=== PATIENT | female | born 1995 | race Caucasian/White ===

== ENCOUNTER 2021-04-16 13:11 | Emergency (ER) | payer OTHER, BC, SELFPAY ==
[2021-04-16 14:48] VITALS: BP 132/82; PULSE 73; RESP 16; TEMP 37.2; O2SAT 99
--- NOTE | 2021-04-16 15:46 | ED.URI ---
HPI - URI/Sore Throat General Chief Complaint: Upper Respiratory Infection Stated Complaint: sore throat Time Seen by Provider: 04/16/21 15:46 Source: patient Mode of arrival: ambulatory Limitations: no limitations History of Present Illness HPI Narrative: Shasha Birmingham is a 25 yo female with with no PMH who comes to [facility] for strep test after she was Covid tested earlier today. She left work early yesterday and was told that she had to get both a Covid test and strep test before she can return to work. Rapid strep test is negative today and she had symptoms that started on Wednesday. She stated that since she has been here for so long her throat is actually feeling better Related Data Home Medications Medication Instructions Recorded Confirmed desogestrel-ethinyl estradiol tablet 04/16/21 [Apri] Allergies Allergy/AdvReac Type Severity Reaction Status Date / Time No Known Allergies Allergy Verified 04/16/21 15:23 Review of Systems Review of Systems: CONSTITUTIONAL: Denies fever, chills, sweats. EYES: Denies visual changes, redness, discharge. ENT: Denies rhinorrhea, has mild congestion, has sore throat, otalgia. CARDIOVASCULAR: Denies chest pain, palpitations, edema. RESPIRATORY: Denies dyspnea, wheezing, cough GASTROINTESTINAL: Denies abdominal pain, nausea, vomiting, diarrhea. GENITOURINARY: Denies dysuria, hematuria, abnormal discharge SKIN: Denies rash or itching. NEUROLOGIC: Denies numbness, or focal weakness. PSYCHIATRIC: Denies anxiety or depression. [facility] Social History Social History (Updated 04/16/21 @ 15:52 by Dee Boles CNP) Smoking status: Never smoker Alcohol intake: current Comments At time of signature, I agree with nursing past medical, surgical, social and family history. There is no relevant family history pertinent to the presenting complaint. Exam Narrative: GENERAL: This is a well-nourished, well-developed patient, in mild distress. HEAD: normocephalic, atraumatic. EYES: Sclera clear/white. Vision is grossly intact. EARS: External ears normal, auditory canals mild erythema and without drainage, TMs normal without perforation. Hearing grossly intact. NOSE: External nose normal without nasal discharge, nares without redness, no rhinorrhea. THROAT: Mucous membranes moist, posterior pharynx erythema with mild edema NECK: Neck supple, non-tender CARDIOVASCULAR: Regular rate and rhythm without murmurs, gallops, or rubs. RESPIRATORY: Clear to auscultation. Breath sounds equal bilaterally. No wheezes, rales, or rhonchi. GASTROINTESTINAL: Abdomen soft, non-tender, SKIN: warm, intact with no suspicious lesions or rash, good texture and turgor. NEURO: awake, alert, and oriented to person, place and time. There were no obvious focal neurologic abnormalities. Steady gait EXTREMITIES: Normal range of motion. BACK: Nontender without deformity Course Course Emergency Course: Patient had negative Covid test today at [facility] (rapid) -sent here for strep test Strep test negative Level of Care: Express Care Visit Vital Signs Vital signs: Vital Signs Temperature 99.0 F 04/16/21 14:48 Pulse Rate 73 04/16/21 14:48 Respiratory Rate 16 04/16/21 14:48 Blood Pressure 132/82 04/16/21 14:48 Pulse Oximetry 99 04/16/21 14:48 Temperature 99.0 F 04/16/21 14:48 Pulse Rate 73 04/16/21 14:48 Respiratory Rate 16 04/16/21 14:48 Blood Pressure 132/82 04/16/21 14:48 Pulse Oximetry 99 04/16/21 14:48 MDM - URI/Sore Throat Differential Diagnosis Differential diagnosis: Likely upper respiratory infection, viral infection, bronchitis, influenza and pharyngitis Lab Data Labs: Strep Screen Presumptive Negative *(Reference Range: Negative)* Critical Care Time Critical Care Time Critical Care Time: No Discharge Plan Discharge Clinical Impression: Pharyngitis Qualifiers: Pharyngitis/ton
== END 2021-04-16 16:23 | disposition home or self-care (01) ==
PROVIDERS: Emergency Provider Nurse Practitioner
DX: J02.9 Acute pharyngitis, unspecified (principal)
CPT/HCPCS: 87081; 87880; 99213; G0463